=== PATIENT | female | born 1930 | race Caucasian/White ===

== ENCOUNTER 2017-12-01 21:33 | Observation (INO) | payer MEDICARE ==
[2017-12-01 23:12] LABS: Troponin I Less than 0.010 ng/mL (< 0.028)
--- NOTE | 2017-12-01 23:46 | PDOC.EVN ---
Attending Addendum - Attending Addendum Date/Time: 12/01/17 5702 I personally evaluated the patient and discussed the management with Dr. Lagos /Lula. I agree with the History, Examination, Assessment and Plan documented in the electronic H&P with any addition or exceptions noted below. Patient is 86 yo F with hx CAD who presents after sudden onset of L sided chest pain earlier today. Denies nausea/vomiting, diaphoresis. Event spontaneously resolved. Patient with history of dementia and cannot recall events surrounding this episode. Daughter reports patient has been in baseline state of health recently and has had no decreased activity intolerance, though the patient is mostly sedentary. Exam is relatively benign, and vital signs are stable. EKG shows v-paced rhythm, and initial set of troponins negative. Patient has good follow up with manager order in [facility] and we will discuss case with them in the AM to determine whether to pursue stress testing here or defer to outpatient setting as the patient and family are not interested in invasive treatments. Will order stress to get patient on schedule and determine further workup based on our conversations with outpatient manager order in the AM.
[2017-12-01] MEDS ORDERED: Ondansetron ODT 4 MG TAB SL PRN (23:55)
[2017-12-01] MEDS ORDERED: Ondansetron HCl/PF 4 MG/2 ML Vial IVP PRN (23:55)
[2017-12-01] MEDS ORDERED: Sodium Chloride 0.9% 1,000 ML IV SCH (23:55)
[2017-12-01] MEDS ORDERED: Acetaminophen 325 MG TAB PO PRN (23:55)
--- NOTE | 2017-12-02 00:14 | PDOC.FPRHP ---
- History of Present Illness Chief Complaint: Chest Pain History of Present Illness: Ms Smith is an 86yo female with pmh of HTN, HLD, CHF presenting for chest pain that started this morning while sitting in her chair. Pt has dementia and is unable to recall much of the episode except that it radiated down her left arm but denies current chest pain. Her daughter reports she appeared diaphoretic and pale and reported shortness of breath at that time and the pain resolved around 30 min after while riding in the car on the way to ED. Pain not worse with exertion. Sees Dr Jimenez, de icer kit assembler in [place]. Daughter reports she was due for echo soon. Last heart cath was >5 years ago, unknown results. Denies SOB, nausea, vomiting. ED Course: ASA - Allergies/Adverse Reactions Allergies Allergy/AdvReac Type Severity Reaction Status Date / Time No Known Allergies Allergy Verified 12/02/17 00:36 - Home Medications Medication Instructions Recorded Confirmed Type Apixaban [Eliquis] 2.5 mg PO BID 12/02/17 12/02/17 History Cetirizine HCl [Zyrtec] 10 mg PO DAILY 12/02/17 12/02/17 History Cholecalciferol (Vitamin D3) 2,000 unit PO DAILY 12/02/17 12/02/17 History [Vitamin D3] Gabapentin [Neurontin] 600 mg PO HS 12/02/17 12/02/17 History Magnesium Chloride [Slow-Mag] 64 mg PO TID 12/02/17 12/02/17 History Memantine HCL/Donepezil HCL 1 each PO DAILY 12/02/17 12/02/17 History [Namzaric 28 mg-10 mg Capsule] Metoprolol Tartrate [Lopressor] 12.5 mg PO BID 12/02/17 12/02/17 History Oxybutynin Chloride 5 mg PO BID 12/02/17 12/02/17 History Potassium Chloride [Klor-Con 10] PO BID 12/02/17 History Torsemide [Demadex] 40 mg PO BID 12/02/17 12/02/17 History Ubidecarenone [CoQ-10] 50 mg PO DAILY 12/02/17 12/02/17 History - History PMHx: Aortic/Mitral valve regurg, neuropathy, CHF, pacemaker, HTN, dementia, DMII- diet controlled PSHx: Right knee replacement, Cholecystectomy, hysterectomy FHx: Son- of [place] age 34 Social: Lives with daughter out of town. Currently staying with other daughter in [facility]. Denies tobacco, drug or alcohol use. - Review of Systems General: denies: fever/chills, weight/appetite/sleep changes, night sweats Eyes: denies: eye pain, vision changes ENT: denies: nasal congestion, rhinorrhea Respiratory: reports: shortness of breath. denies: cough, congestion Cardiovascular: reports: chest pain. denies: palpitation, edema Gastrointestinal: denies: nausea, vomiting, diarrhea, constipation, abdominal pain Genitourinary: reports: incontinence. denies: dysuria Skin: denies: rashes, lesions Musculoskeletal: denies: pain, stiffness Neurological: denies: numbness, weakness - Vital signs BP: 131/71 HR: 68 RR: 16 Tmax: 98.1 Pox: 97% on RA Wt: 82.55 - Physical Exam Constitutional: NAD, awake, alert and oriented, well developed HEENT: normocephalic and atraumatic, PERRLA, conjunctiva clear, MMM, oropharynx clear, other (upper and lower dentures) Neck: supple, trachea midline Heart: RRR, pulses present, no edema -Heart: Diastolic murmur Lungs: CTAB, no respiratory distress Abdomen: soft, non-tender, bowel sounds present Musculoskeletal: normal structure, normal tone Neurological: no focal deficit Skin: capillary refill <2 seconds Psychiatric: normal mood and affect, good judgment and insight, intact recent and remote memory FMR H&P: Results - EKG Interpretation EKG: Ventricular paced, 87 bpm, LAD nonspecific ST changes FMR H&P: A/P - Problem List (1) Atypical chest pain Current Visit: Yes Status: Acute Code(s): R07.89 - OTHER CHEST PAIN (2) Bladder incontinence Current Visit: Yes Status: Acute Code(s): R32 - UNSPECIFIED URINARY INCONTINENCE (3) CHF (congestive heart failure) Current Visit: Yes Status: Acute Code(s): I50.9 - HEART FAILURE, UNSPECIFIED (4) Neuropathy Current Visit: Yes Status: Acute Code(s): G62.9 - POLYNEUROPATHY, UNSPECIFIED (5) HTN (hypertension) Current Visit: Yes Status: Acute Code(s): I10 - ESSENTIAL (PRIMARY) HYPERTENSION (6) Dementia Current Visit: Yes Status: Acute Code(s): F03.90 - UNSPECIFIED DEMENTIA WITHOUT BEHAVIORAL DISTURBANCE (7) Pacemaker Current Visit: Yes Status: Acute Code(s): Z95.0 - PRESENCE OF CARDIAC PACEMAKER - Plan Ms Smith is a 86yo female with pmh of HTN, CHF presenting with atypical chest pain Atypical Chest pain - Heart score: 5 - Trops neg x3 in [facility] - Trops here neg x2, Continue to trend trops and CKMB - Consult Cards early in AM - NPO at midnight for stress test - Requested records from de icer kit assembler Dr Jimenez in [place] - Start Statin, continue Eliquis - EKG for return of chest pain - Nitro PRN - Will admit to tele obs for further observation CHF - Pt reports de icer kit assembler ordered echo to be done in near future - Will order Echo tomorrow AM - Continue home meds - Strict I&Os PATTI - unknown baseline - LR @ 75 - Will check BMP in AM Hypercalcemia - LR @ 75 - Recheck in AM Dementia - At baseline per daughter Neuropathy - Continue home meds HTN - Continue home meds Urge incontinence - Continue oxybutynin Code Status: FULL DVT ppx: Eliquis FMR H&P: Upper Level - Pertinent history 86 y/o F w/ PMHx of CHF, HTN, and dementia presents as a TXR from [facility] for chest pain evaluation. Pt endorsing acute onset of L-sided chest pain earlier today w/ radiation into left arm and w/ associated SOB. Sxs lasting approx. 1 hour before resolving spontaneously. Denies any current chest pain at this time. Reports she sees a de icer kit assembler out of town and had been recommended she get an aortic and mitral valve replacement, but decided to not persue surgical intervention due to patients age and comorbidities. Denies any significant LE swelling. Has not had a recent echocardiogram. - Pertinent findings BP: 108/60 P: 87 RR: 18 Temp: 98.4 Deg F O2Sat: 95% on RA WBC 8.2 Neut 49.1% neutrophils Hgb 14.9 Hct 44.4 Plt 246 Na 144 K 3.5 Cl 106 CO2 28 BUN 23 Cr 1.28 Gluc 86 T. bili 1.0 AST 14 ALT 9 Alk Phos 107 Lipase 78 Trop 0.015 BNP 265.5 EKG V-paced rate in the 70s. CXR NAD GEN: NAD, resting comfortably CARDS: 3/6 diastolic murmur LUSB, and 5th intercostal space mid-clavicular line Pulm: CTA-b/l, no wheezes, rales, or rhonci GI: soft, non-tender to palpation, no rigidity, no rebound tenderness - Plan Date/Time: 12/02/17 0014 I, B. Jair Cotton MD have evaluated this patient and agree with findings/plan as outlined by program management intern resident. Pertinent changes/additions are listed here. 74 y/o F w/ : 1) Atypical Chest Pain (HEART 5) - Hx of CHF w/ pacemaker per history making EKG read difficult to interpret w/ Ventricular pacing. Trop negative x1 at this time. - Will give statin and cont. w/ xarelto - Trop negative x 1, will cont. to trend w/ CK-MB as well - Discussed options for care w/ patient and daughter who is her caregiver. Will plan to contact [facility] de icer kit assembler to discuss stress test first thing in the AM. As to not prolong patients hospitalization will go ahead and proceed as she will be getting a cardiolyte nuclear stress and cancel this if needed after speaking with her de icer kit assembler in the AM. - NPO at midnight pending possible cath/stress per cardiology - Admit Tele/obs 2) HTN - Cont. w/ home meds 3) CHF - Cont. w/ home meds - Obtain ECHO for further evaluation - Monitor strict I/Os and monitor for overload 4) Dementia - At baseline per family, will continue to monitor 5) Possible PATTI - Last check 2017 w/ Cr 1.0 - Will give gentle fluids and repeat in AM 6) Mild Hypercalcemia - Will give gentle fluids and repeat in the AM Code Status: Full Code DVT PPx: xarelto IVF: LR @ 75 mL/Hr Assessment and Plan discussed w/ Dr. Nathen Caicedo who is in agreement.
[2017-12-02 00:40] VITALS: BMI 31.9
[2017-12-02] MEDS ORDERED: Nitroglycerin 0.4 MG TAB (25 Tab Bottle) PO PRN (00:49)
[2017-12-02] MEDS ORDERED: Ondansetron ODT 4 MG TAB PO PRN (00:49)
[2017-12-02] MEDS: Lactated Ringer's 1,000 ML IV SCH ×2 (01:44→16:55)
[2017-12-02 02:08] LABS: Magnesium 2.1 mg/dL (1.6-2.6); Phosphorus 3.5 mg/dL (2.3-4.7)
[2017-12-02 02:13] LABS: Troponin I Less than 0.010 ng/mL (< 0.028)
[2017-12-02 04:33] LABS: #Eosinphils 0.3 thou/uL (0.0-0.7); #Lymphocytes 2.5 thou/uL (1.20-3.40); #Monocytes 0.5 thou/uL (0.11-0.59); #Neutrophils 2.8 thou/uL (1.40-6.50); %Basophils 0.8 % (0.0-1.0); %Eosinophils 4.1 % (0.0-10.0); %Lymphocytes 40.9 % (21.0-51.0); %Monocytes 8.5 % (0.0-10.0); %Neutrophils 45.7 % (42.0-75.0); Mean Corpuscular HGB CONC 34.3 g/dL (32.0-36.0); Mean Corpuscular Hemoglobin 31.1 pg (27.0-31.0); Mean Corpuscular Volume 90.9 fL (78.0-98.0); Mean Platelet Volume 10.1 fL (7.4-10.4); Platelet Count 178 thou/uL (130-400); RBC Distribution Width 12.8 % (11.5-14.5); Red Blood Cell (RBC) Count 4.19 mill/uL (4.20-5.40); White Blood Cell (WBC) Count 6.1 thou/uL (4.8-10.8)
[2017-12-02 04:59] LABS: Anion Gap 11 mmol/L (10-20); BUN (Urea Nitrogen) 24 mg/dL (9.8-20.1); Calc. Creatinine Clearance 50 mL/min (70-130); Calcium 9.8 mg/dL (7.8-10.44); Carbon Dioxide 26 mmol/L (23-31); Cardiac Risk 5.3 (Less than 4.5); Chloride 107 mmol/L (98-107); Cholesterol 180 mg/dl (< 200 Desired); Estimated GFR-MDRD 51; Glucose 147 mg/dL (83-110); HDL Cholesterol 34 mg/dL (>60 Neg Risk); LDL Cholesterol, Calculated 114 mg/dL; Potassium 3.5 mmol/L (3.5-5.1); Sodium 140 mmol/L (136-145); Triglycerides 162 mg/dL (Less than 150)
[2017-12-02] MEDS ORDERED: Aspirin 325 mg Enteric Coated Tablet PO SCH (08:00)
--- NOTE | 2017-12-02 08:10 | PDOC.FM ---
- Subjective Subjective: This morning patient states she is chest pain free and did not have any chest pain overnight. She and her daughter would like to have stress test done in order to check for infarct but they do not want any invasive procedures. No N/V/ D. - Objective Vital Signs & Weight: Vital Signs (12 hours) Temp Pulse Resp BP BP Pulse Ox 12/02/17 07:39 97.7 F 74 16 144/61 H 95 12/02/17 03:27 97.6 F 61 18 148/66 H 95 12/01/17 23:29 98.4 F 78 20 133/68 96 Weight Weight 81.783 kg I&O: 12/01/17 12/02/17 12/03/17 06:59 06:59 06:59 Intake Total 353 Output Total 100 Balance 253 Result Diagrams: 12/02/17 03:26 12/02/17 03:26 Phys Exam - Physical Examination Constitutional: NAD HEENT: PERRLA, moist MMs Neck: no nodes, full ROM Respiratory: no wheezing Cardiovascular: RRR 3/6 systolic murmur Gastrointestinal: soft, non-tender, no distention, positive bowel sounds Musculoskeletal: no edema, pulses present Neurological: non-focal, moves all 4 limbs Psychiatric: normal affect, A&O x 3 Skin: no rash, cap refill <2 seconds Dx/Plan (1) Atypical chest pain Code(s): R07.89 - OTHER CHEST PAIN Status: Acute (2) CHF (congestive heart failure) Code(s): I50.9 - HEART FAILURE, UNSPECIFIED Status: Acute (3) Dementia Code(s): F03.90 - UNSPECIFIED DEMENTIA WITHOUT BEHAVIORAL DISTURBANCE Status: Acute (4) HTN (hypertension) Code(s): I10 - ESSENTIAL (PRIMARY) HYPERTENSION Status: Acute (5) Neuropathy Code(s): G62.9 - POLYNEUROPATHY, UNSPECIFIED Status: Acute (6) Pacemaker Code(s): Z95.0 - PRESENCE OF CARDIAC PACEMAKER Status: Acute - Plan Plan: 74 y/o F w/ : # Atypical Chest Pain (HEART 5) - Hx of CHF, Trop negative x3 - statin, xarelto - discussed with patient's primary Landscape Artist, she states "do whatever needs to be done and fax me the records" # HTN - Cont. w/ home meds # CHF - Cont. w/ home meds - Obtain ECHO for further evaluation - Monitor strict I/Os and monitor for overload # Dementia - At baseline per family, will continue to monitor Code Status: Full Code DVT PPx: safiarelto IVF: LR @ 75 mL/Hr Dispo: likely d/c this PM pending above tests
--- NOTE | 2017-12-02 08:12 | PDOC.EVN ---
Attending Addendum - Attending Addendum Date/Time: 12/02/17 1675 I personally evaluated the patient and discussed the management with Dr. Mcnair. I agree with the History, Examination, Assessment and Plan documented in his progress note with any addition or exceptions noted below. Patient here with history of CAD and chest pain x1 yesterday with spontaneous resolution. Her troponins have been negative and EKG shows v paced rhythm therefore not able to adequately assess ST segment changes. She has no further symptoms. We are working to discuss with her outpatient irrigation system operator but will likely obtain stress testing here and have records submitted to her physician. Likely discharge home later today with further mgmt as outpatient.
[2017-12-02] MEDS ORDERED: Non-Formulary Item 1 EACH (Cetirizine Hcl [Zyrtec] 10 MG) PO SCH (09:00)
[2017-12-02] MEDS ORDERED: Ubidecarenone 50 MG CAP PO SCH (09:00)
[2017-12-02] MEDS ORDERED: Torsemide 20 MG TAB PO SCH (09:00)
[2017-12-02] MEDS ORDERED: Aspirin 325 MG TAB PO SCH (09:00)
[2017-12-02] MEDS ORDERED: Loratadine 10 MG TAB PO SCH (09:00)
[2017-12-02] MEDS ORDERED: Oxybutynin 5 MG TAB PO SCH (09:00)
[2017-12-02] MEDS ORDERED: Apixaban 2.5 MG TAB PO SCH (09:00)
[2017-12-02] MEDS ORDERED: Aspirin 81 mg Enteric Coated Tablet PO SCH (09:00)
[2017-12-02] MEDS ORDERED: Non-Formulary Item 1 EACH (Memantine Hcl/Donepezil Hcl [Namzaric 28 Mg-10 Mg Capsule] 1 E PO SCH (09:00)
[2017-12-02] MEDS: Magnesium Chloride 64 MG TAB PO SCH ×2 (12:23→17:12)
--- NOTE | 2017-12-02 13:51 | NM ---
NUCLEAR MEDICINE CARDIAC MYOCARDIAL PERFUSION SPECT EJECTION FRACTION STUDY WALL MOTION CINE: DATE: 12/02/2017 HISTORY: An 86-year-old female with chest pain. TECHNIQUE: Number of days: 2 Rest study: Tc99m sestamibi (Cardiolite) dose: 11.0 mCi Pharmacologic stress: adenosine dose: 48.5 mg Stress study: Tc99m sestamibi (Cardiolite) dose: 33.0 mCi FINDINGS: CARDIAC (MYOCARDIAL PERFUSION) SPECT There is an apparent small focus of decreased uptake at the apicoseptal region on the stress images, which appears to at least partially reverse on the rest images. It is uncertain whether this is erika fact or reversible ischemia. There are no other perfusion defects in the rest of the left ventricula r myocardium. No chamber dilation. EJECTION FRACTION STUDY EF = 68% WALL MOTION CINE Normal. IMPRESSION: Questionable small focus of reversible ischemia in the apicoseptal region. ROSY Garcia POS: LEONA
[2017-12-02] MEDS ORDERED: ADENOSINE 60 MG/20 ML VIAL ONE (15:20)
[2017-12-02 16:37] VITALS: BP 136/71; TEMP 98
--- NOTE | 2017-12-02 18:29 | CON ---
DATE OF CONSULTATION: 12/02/2017 REASON FOR CONSULTATION: Chest pain. HISTORY OF PRESENT ILLNESS: Ms. Smith is an 86-year-old woman who is from [place], [place]. She sta norris she underwent angiography 4 years ago and was not found to have significant coronary artery disea se. She does have a history of pacemaker implantation. She states she had an episode of chest pain. It was mild to moderate, lasting 45 minutes. No . She proceeded to the emergency room with the above complaint. PAST MEDICAL HISTORY: As described above including hypertension, hyperlipidemia, diastolic heart scar lure, aortic stenosis, mitral stenosis, neuropathy, mild dementia, diabetes mellitus. PAST SURGICAL HISTORY: Knee surgery, cholecystectomy, hysterectomy. SOCIAL HISTORY: No current tobacco or alcohol use. REVIEW OF SYSTEMS: Reviewed and is as above, negative. HOME MEDICATIONS: Include metoprolol, Zyrtec, Flomax, CoQ10, Demadex, oxybutynin, Namzaric, Neuronti n, Eliquis, Klor-Con, and aspirin. REVIEW OF SYSTEMS: A 10-point review of systems is reviewed and as above, otherwise negative. PHYSICAL EXAMINATION: GENERAL: Patient is a pleasant female who is in no acute distress. The patient appears her stated age. VITAL SIGNS: Blood pressure 136/71, pulse 85, temperature 98. NEUROLOGIC: The patient is alert and oriented times 3 with no focal neurologic deficits. HEENT: Sclerae without icterus. Mouth has moist mucous membranes with normal pallor. NECK: No JVD. Carotid upstroke brisk. No bruits bilaterally. LUNGS: Clear to auscultation with unlabored respirations. BACK: No scoliosis or kyphosis. CARDIAC: Regular rate and rhythm with normal S1 and S2. No S3 or S4 noted. No significant rubs, murmurs, thrills, or gallops noted throughout the precordium. PMI is not displaced. There is no parasternal heave. ABDOMEN: Soft, nontender, nondistended. No peritoneal signs present. No hepatosplenomegaly. No abnormal striae. EXTREMITIES: 2+ femoral and 2+ dorsalis pedis pulses. No cyanosis, clubbing, or edema. SKIN: No gross abnormalities. PERTINENT LAEBS: Hemoglobin 13, creatinine 1.02. CK troponin negative. EKG shows paced rhythm. Stress rest, myocardial small area of ischemia present along the anter oseptal wall. IMPRESSION: 1. Atypical chest pain. 2. Status post pacemaker. 3. Abnormal stress study. 4. Atrial fibrillation. RECOMMENDATIONS: From a CV standpoint, Ms. Smith' stress test is felt to be low risk. This may a lso be a false positive given underlying left bundle branch block with pacer. She is currently chest pain free. She also underwent coronary angiography 4 years ago and was not found to have significan t coronary artery disease per patient. Discussed angiography versus medical therapy. The patient op ts for medical therapy. I would recommend adding low dose Imdur at 30 mg p.o. q.a.m. Continue Eliqu is, low dose aspirin. Resume beta connie therapy as prescribed at home.
[2017-12-02] MEDS ORDERED: Gabapentin 300 MG CAP PO SCH (21:00)
--- NOTE | 2017-12-03 05:02 | DIS-2 ---
DATE OF ADMISSION: 12/01/2017 DATE OF DISCHARGE: 12/02/2017 RESIDENT: Dr. Joshua Mcnair. ADMITTING ATTENDING: Dr. Nathen Caicedo. DISCHARGE ATTENDING: Dr. Nathen Caicedo. CONSULTATION: Cardiology, Dr. Jade. PROCEDURES: Nuclear medicine stress test, echocardiogram. PRIMARY DIAGNOSIS: Chest pain, rule out. SECONDARY DIAGNOSES: Congestive heart failure, dementia, hypertension, neuropathy, history of pacemaker. DISCHARGE MEDICATIONS: Aspirin 81 mg, metoprolol, cetirizine, magnesium, CoQ10 , torsemide, oxybutynin, memantine, gabapentin, vitamin D, Eliquis, potassium. HISTORY OF PRESENT ILLNESS AND HOSPITAL COURSE: This is an 86-year-old female with past medical history of hypertension, hyperlipidemia, and CHF, presenting for chest pain that started while sitting on a chair. The patient has dementia and was unable to recall much of the episode, but denied chest pain upon presentation to the ED. Daughter reported that she appeared diaphoretic and pale and reported shortness of breath, at the time that the pain came on, lasting about 20-30 minutes during the car ride to the ED. The pain was not worse with exertion. She sees Dr. Champion, who is her coffee attendant in [place]. Last heart catheterization greater than 5 years ago. Denies shortness of breath, nausea, or vomiting. I spoke with the patient's primary coffee attendant, who recommends Cardiology consultation and appropriate care. The patient had a nuclear medicine stress test, which was read as having EF 68% with questionable small focus of reversible ischemia in the apical septal region. Patient also had echocardiogram which showed ejection fraction 50-55% suggestive of diastolic dysfunction. Mild mitral stenosis. Moderately thickened trileaflet aortic valve with decreased excursion. Moderate aortic stenosis. Moderate aortic regurgitation. [id number] tricuspid regurgitation. Cardiology states the stress test was felt to be low risk. Could also be false positive giving underlying left bundle-branch block with pacer. She is currently chest pain free. Discussed angiography versus medical therapy. The patient opts for medical therapy. Manager Wound recommendation is to consider adding Imdur at 30 mg p.o. every a.m. and continuing Eliquis low dose aspirin and beta-connie therapy. The patient should follow up with primary coffee attendant for further decision making. DISPOSITION: Stable. DISCHARGE INSTRUCTIONS: 1. Location: Home. 2. Diet: Heart healthy. 3. Activity: As tolerated. 4. Followup: Follow up with Dr. Champion as soon as possible, primary care provider in 2-3 days. KURT
== END 2017-12-02 17:55 | disposition home or self-care (01) ==
LOC: ERS 21:33 → 2SW 23:36
PROVIDERS: ADMIT Student in an Organized Health Care Education/Training Program; ATTEND Student in an Organized Health Care Education/Training Program
DX: R07.89 Other chest pain (principal); F03.90 Unspecified dementia, unspecified severity, without behavioral disturbance, psychotic disturbance, mood disturbance, and anxiety; I11.0 Hypertensive heart disease with heart failure; I50.30 Unspecified diastolic (congestive) heart failure; E78.5 Hyperlipidemia, unspecified; I08.0 Rheumatic disorders of both mitral and aortic valves; R32 Unspecified urinary incontinence; E11.42 Type 2 diabetes mellitus with diabetic polyneuropathy; E83.52 Hypercalcemia; I25.10 Atherosclerotic heart disease of native coronary artery without angina pectoris; I48.91 Unspecified atrial fibrillation; Z79.01 Long term (current) use of anticoagulants; Z79.899 Other long term (current) drug therapy; Z95.0 Presence of cardiac pacemaker
CPT/HCPCS: 78452; 80048; 80061; 83735; 84100; 84443; 84484 ×2; 85025; 90662; 93005 ×2; 93017; 93306; 99285; A9500; G0008; G0378 ×2; 36415; 90471; 93010; J0153